=== PATIENT | male | born 1990 | race American Indian/Alaskan Native ===

== ENCOUNTER 2018-11-20 23:10 | Emergency (ER) | payer OTHER ==
--- NOTE | 2018-11-21 00:15 | XRay Report ---
RIGHT HAND 3 VIEWS INDICATION / CLINICAL INFORMATION: Right hand injury COMPARISON: None available. FINDINGS: BONES / JOINT(S): No acute fracture or subluxation. No significant arthritis. SOFT TISSUES: No significant abnormality. ADDITIONAL FINDINGS: None. Signer Name: Gerardo Ramirez MD Signed: 11/21/2018 12:11 AM Workstation Name: [id number]
[2018-11-21] MEDS ORDERED: IBUPROFEN PO ONE (01:04)
[2018-11-21] MEDS ORDERED: TYLENOL PO ONE (01:04)
--- NOTE | 2018-11-21 02:06 | Emergency Department Report ---
ED Upper Extremity Inj HPI - General Chief Complaint: Extremity Injury, Upper Stated Complaint: SMASHED RIGHT HAND AT WORK Source: patient Mode of arrival: Ambulatory Limitations: No Limitations - History of Present Illness Initial Comments: Patient is a 28-year-old -[place] male with no past medical history presents to the ED with acute onset persistent severe right hand pain after he accidentally hit his right hand against conveyor belt at work about 4 hours ago. Patient states that the pain has been persistent and is profoundly active range of motion of the right hand because of severe pain. Patient denies traumatic injury, nausea, vomiting, fall, heavy lifting, numbness and tingling or weakness of right hand, dizziness, neck pain, chest pain or shortness of breath. MD Complaint: Injury to:: right, hand -: Sudden, hour(s) (4) Other Extremity Injury: Hand: Right (pain) Handedness: right Place: work Severity scale (0 -10): 7 Improves With: rest Worsens With: movement of extremity Context: direct blow (hit right hand against conveyor belt) Associated Symptoms: denies other symptoms. denies: weakness, numbness, neck pain, suspects foreign body, heard/felt popping sensat - Related Data Previous Rx's Medication Instructions Recorded Last Taken Type Cyclobenzaprine [Flexeril] 10 mg PO Q8H PRN #15 tablet 11/21/18 Unknown Rx Ibuprofen [Motrin] 600 mg PO Q8H PRN #20 tablet 11/21/18 Unknown Rx Allergies Allergy/AdvReac Type Severity Reaction Status Date / Time No Known Allergies Allergy Unverified 11/20/18 23:31 ED Review of Systems ROS: Stated complaint: SMASHED RIGHT HAND AT WORK Other details as noted in HPI Constitutional: denies: chills, fever Eyes: denies: eye pain, eye discharge, vision change ENT: denies: ear pain, throat pain Respiratory: denies: cough, shortness of breath, wheezing Cardiovascular: denies: chest pain, palpitations Endocrine: no symptoms reported Gastrointestinal: denies: abdominal pain, nausea, diarrhea Genitourinary: denies: urgency, dysuria Musculoskeletal: arthralgia (right hand). denies: back pain, joint swelling Skin: denies: rash, lesions Neurological: denies: headache, weakness, paresthesias Psychiatric: denies: anxiety, depression Hematological/Lymphatic: denies: easy bleeding, easy bruising ED Past Medical Hx - Past Medical History Previous Medical History?: No - Surgical History Past Surgical History?: No - Social History Smoking Status: Current Every Day Smoker Substance Use Type: None - Medications Home Medications: Home Medications Medication Instructions Recorded Confirmed Last Taken Type Cyclobenzaprine [Flexeril] 10 mg PO Q8H PRN #15 tablet 11/21/18 Unknown Rx Ibuprofen [Motrin] 600 mg PO Q8H PRN #20 tablet 11/21/18 Unknown Rx ED Physical Exam - General Limitations: No Limitations General appearance: alert, in no apparent distress - Head Head exam: Present: atraumatic, normocephalic, normal inspection - Eye Eye exam: Present: normal appearance, PERRL, EOMI Pupils: Present: normal accommodation - ENT ENT exam: Present: normal exam, normal orophraynx, mucous membranes moist, TM's normal bilaterally, normal external ear exam - Neck Neck exam: Present: normal inspection, full ROM - Respiratory Respiratory exam: Present: normal lung sounds bilaterally. Absent: respiratory distress, wheezes, chest wall tenderness, prolonged expiratory - Cardiovascular Cardiovascular Exam: Present: regular rate, normal rhythm, normal heart sounds. Absent: systolic murmur, diastolic murmur, rubs, gallop - GI/Abdominal GI/Abdominal exam: Present: soft, normal bowel sounds. Absent: tenderness, rebound - Rectal Rectal exam: Present: deferred - Extremities Exam Extremities exam: Present: normal inspection, tenderness (right hand tenderness with limited ROM due to pain), normal capillary refill. Absent: full ROM (limited due to pain), pedal edema, joint swelling, calf tenderness - Back Exam Back exam: Present: normal inspection, full ROM. Absent: tenderness, CVA tenderness (R), CVA tenderness (L), muscle spasm, paraspinal tenderness - Neurological Exam Neurological exam: Present: alert, oriented X3, CN II-XII intact, normal gait, reflexes normal - Psychiatric Psychiatric exam: Present: normal affect, normal mood - Skin Skin exam: Present: warm, dry, intact, normal color. Absent: rash ED Course Vital Signs 11/20/18 23:17 Temperature 98.4 F Pulse Rate 78 Respiratory 16 Rate Blood Pressure 133/68 O2 Sat by Pulse 98 Oximetry - Reevaluation(s) Reevaluation #1: 11/21/18 02:08 This is a 28-year-old -[place] male who presented to the ED with traumatic right hand pain after injury at work 4 hours ago. In the ED, patient is alert and oriented 3 and is not in distress. The patient's right hand was x-rayed and the x-ray shows no acute fractures or subluxations. Patient was treated for pain in the ED and the right hand was splinted with a Velcro splint. Patient was discharged home on pain medications and advised to follow-up with his primary care physician in 5-7 days for reevaluation or return to the ED immediately if symptoms get worse. ED Medical Decision Making - Radiology Data Radiology results: report reviewed, image reviewed Right hand x-ray shows no acute fractures or subluxations. - Medical Decision Making This is a 28-year-old -[place] male who presented to the ED with traumatic right hand pain after injury at work 4 hours ago. In the ED, patient is alert and oriented 3 and is not in distress. The patient's right hand was x-rayed and the x-ray shows no acute fractures or subluxations. Patient was treated for pain in the ED and the right hand was splinted with a Velcro splint. Patient was discharged home on pain medications and advised to follow-up with his primary care physician in 5-7 days for reevaluation or return to the ED immediately if symptoms get worse. - Differential Diagnosis Hand sprain; Hand fracture; muscle strain; contusion Critical care attestation.: If time is entered above; I have spent that time in minutes in the direct care of this critically ill patient, excluding procedure time. ED Disposition Clinical Impression: Contusion of right hand including fingers Qualifiers: Encounter type: initial encounter Qualified Code(s): S60.221A - Contusion of right hand, initial encounter; S60.00XA - Contusion of unspecified finger without damage to nail, initial encounter Sprain of right hand Qualifiers: Encounter type: initial encounter Qualified Code(s): S63.91XA - Sprain of unspecified part of right wrist and hand, initial encounter Disposition: DC-01 TO HOME OR SELFCARE Is pt being admited?: No Does the pt Need Aspirin: No Condition: Stable Instructions: Hand Sprain (ED), Contusion in Adults (ED) Additional Instructions: Take medication with food, drink plenty of fluids and follow up with your primary care physician in 5-7 days for reevaluation. Return to the ED immediately if symptoms get worse. Prescriptions: Cyclobenzaprine [Flexeril] 10 mg PO Q8H PRN #15 tablet PRN Reason: Muscle Spasm Ibuprofen [Motrin] 600 mg PO Q8H PRN #20 tablet PRN Reason: Pain Referrals: PRIMARY CARE, [Primary Care Provider] - 3-5 Days Forms: Work/School Release Form(ED) Time of Disposition: 02:05 Print Language: EMIRATI
[2018-11-21 02:55] VITALS: BP 124/76
== END 2018-11-21 02:55 | disposition home or self-care (01) ==
LOC: ED 23:10
DX: S63.91XA Sprain of unspecified part of right wrist and hand, initial encounter (principal); S60.221A Contusion of right hand, initial encounter; S60.00XA Contusion of unspecified finger without damage to nail, initial encounter; F17.200 Nicotine dependence, unspecified, uncomplicated; W22.8XXA Striking against or struck by other objects, initial encounter; Y93.89 Activity, other specified; Y92.89 Other specified places as the place of occurrence of the external cause; Y99.8 Other external cause status